=== PATIENT | female | born 1950 | race Caucasian/White ===

== ENCOUNTER 2022-09-07 02:06 | Inpatient (IN) | payer MEDICARE ==
[~2022-09-07] VITALS: Ht 152.4 cm; Wt 43.1 kg
[2022-09-07 02:15] VITALS: BP 142/61
[2022-09-07] MEDS ORDERED: LORAZEPAM 2 MG/1 ML VIAL IV PRN (04:15)
[2022-09-07] MEDS ORDERED: IV NORMAL SALINE 1000 ML BAG IV PRN (04:15)
[2022-09-07] MEDS ORDERED: CEFTRIAXONE 1 G in IV DEXTROSE 5% 50 ML IV PRN ×2 (04:15→05:00)
[2022-09-07] MEDS ORDERED: HALOPERIDOL LACTATE 5 MG/1 ML VIAL IV PRN ×2 (04:15→06:00)
[2022-09-07] MEDS ORDERED: CEFTRIAXONE 1 G in IV DEXTROSE 5% 50 ML IV SCH (05:27)
[2022-09-07] MEDS ORDERED: CEFTRIAXONE /D5W 50ML IVPB **ER PYXIS IV ONE (05:44)
[2022-09-07 07:24] LABS: HEMATOCRIT 38.2 % (31.2-41.9); MEAN CORPUSCULAR HEMOGLOBIN 26.8 uug (24.7-32.8); MEAN CORPUSCULAR VOLUME 82.6 fL (75.5-95.3); PLATELET COUNT (AUTO) 481 K/uL (179-408)
--- NOTE | 2022-09-07 07:30 | NUR ---
Awake, alert, oriented 2-3. IVF infusing. Tele [address]
[2022-09-07 07:54] LABS: CREATININE 0.9 mg/dL (0.6-1.3); PHOSPHOROUS 3.7 mg/dL (2.5-4.9); POTASSIUM 3.2 mmol/L (3.5-5.1)
[2022-09-07] MEDS ORDERED: HALOPERIDOL LACTATE 5 MG/1 ML VIAL IM PRN (08:00)
[2022-09-07] MEDS ORDERED: POTASSIUM CHLORIDE 20 MEQ TAB.PRT.SR PO ONE (09:30)
--- NOTE | 2022-09-07 10:00 | NUR ---
PT eval done, unsteady gait and impulsive noted, ambulated with FWW, max assist x 2. Fall precaution re enforced.
[2022-09-07 11:53] VITALS: BP 157/92
--- NOTE | 2022-09-07 15:30 | NUR ---
Caregiver/friend Gui visited at bedside, expressed concern.
[2022-09-07 15:51] VITALS: BP 147/82
--- NOTE | 2022-09-07 16:26 | NUR ---
saline lock out. Re inserted to RFA G 20. IVF restarted, infusing well.
--- NOTE | 2022-09-07 18:46 | NUR ---
Eating well. IVF infusing well to RFA. Room air, not in distress. Bed alarm on.
[2022-09-07] MEDS ORDERED: ACETAMINOPHEN 650 MG SUPP.RECT RC PRN (19:30)
[2022-09-07] MEDS ORDERED: MELATONIN 3 MG TABLET PO PRN (19:30)
[2022-09-07] MEDS ORDERED: ONDANSETRON 4 MG/2 ML VIAL IV PRN (19:30)
[2022-09-07 20:39] VITALS: BP 148/85
[2022-09-07] MEDS: ACETAMINOPHEN 325 MG TABLET PO PRN (21:14)
[2022-09-08 00:22] VITALS: BP 144/72
[2022-09-08 04:20] VITALS: BP 147/75
[2022-09-08] MEDS: CEFTRIAXONE 1 G in IV DEXTROSE 5% 50 ML IV SCH (05:06)
[2022-09-08] MEDS: IV NS 1000 ML 1,000 ML IV PRN (05:06)
[2022-09-08 06:59] LABS: HEMATOCRIT 39.4 % (31.2-41.9); MEAN CORPUSCULAR HEMOGLOBIN 26.4 uug (24.7-32.8); MEAN CORPUSCULAR VOLUME 82.5 fL (75.5-95.3); PLATELET COUNT (AUTO) 415 K/uL (179-408)
[2022-09-08 07:13] LABS: CREATININE 0.7 mg/dL (0.6-1.3); MAGNESIUM 1.8 mg/dL (1.8-2.4); PHOSPHOROUS 2.6 mg/dL (2.5-4.9); POTASSIUM 3.2 mmol/L (3.5-5.1)
[2022-09-08 07:26] LABS: THYROID STIMULATING HORMONE 0.658 mIU/mL (0.358-3.740)
[2022-09-08] MEDS ORDERED: TRAMADOL HCL 50 MG TABLET PO PRN (07:45)
[2022-09-08] MEDS ORDERED: POTASSIUM CHLORIDE 20 MEQ TAB.PRT.SR PO ONE (09:15)
--- NOTE | 2022-09-08 10:11 | NUR ---
SW consult requested to assess living situation. Patient is a 71-year-old white female admitted to the hospital for hypokalemia and UTI. Patient states that her primary contact is her good friend and caregiver, Gui Lopez ([phone]) that comes to see her for three hours a day. Patient states that she lives alone in an apartment at [address] [place] [address]. Per doctor's documentation, "patient appears to be a hoarder at her home and was found by neighbors down on the ground. Patient does appear to have some anxiety/depression issues but she definitely does have history of agoraphobia and anxiety." Patient states she has no medical equipment at home, she is not driving, and does not have home health services. CONCETTA made an APS report Intake ID [id number] for self-neglect and asked the patients nurse, Joshua to make a psychiatrist consultation order. Patient denies substance abuse and there is no toxicology report. Patient states she has a history of anxiety and does not have a therapist or psychiatrist. Patient denies suicidal or homicidal ideation. Patient states her plan for discharge is to go home to [address] [place] [address]. SW informed human services case manager, Cleve for possible SNF placement.
[2022-09-08] MEDS: METOPROLOL TARTRATE 25 MG TABLET PO SCH ×2 (10:26→21:49)
--- NOTE | 2022-09-08 10:32 | NUR ---
Noted PT. having elevated HR of 125. Reported to DR. Simon and received order for Metoprolol 25mg PO BID. Order was carried out and medication administered. Also, Dr. Simon requested for Psych consult and order was carried out and notified U to notify Dr. Bell that needs to see the patient. Will keep monitoring the patient.
--- NOTE | 2022-09-08 11:27 | NUR ---
Dr. Simon requested pt. to have physical therapy 2 times a day. Notified Greta.
[2022-09-08 11:39] VITALS: BP 152/85
[2022-09-08] MEDS: ENSURE ENLIVE (VAN) 240 ML LIQUID PO SCH ×2 (12:00→16:43)
--- NOTE | 2022-09-08 13:11 | NUR ---
WOUND CARE CONSULT: PT REFUSED SKIN ASSESSMENT. REVIEWED CHART, NURSING DOCUMENTATION AND PHOTOS WHICH INDICATE LEFT HIP AND SACRAL DEEP TISSUE INJURIES IN EVOLUTION. DISCUSSED SKIN PROTECTION AND WOUND CARE RECOMMENDATION WITH NURSING STAFF. MD IN AGREEMENT WITH PLAN OF CARE.
[2022-09-08] MEDS ORDERED: REMEDY ESSENTIAL ZINC PASTE 113 GM TOP PRN (13:15)
[2022-09-08 15:53] LABS: *BILIRUBIN,URIN NEGATIVE (NEGATIVE); *CLARITY,URINE CLEAR (CLEAR); *COLOR,URINE YELLOW (YELLOW); *KETONES,URINE TRACE (NEGATIVE); *UROBILINOGEN,URINE 0.2 E.U./dl (NORMAL); LEUKOCYTE ESTERASE ,URINE TRACE (NEGATIVE); NITRITE, URINE NEGATIVE (NEGATIVE); PH,URINE 7.5 (5.0-8.0); UGLUCOSE NEGATIVE (NEGATIVE)
[2022-09-08 15:57] VITALS: BP 149/80
[2022-09-08 15:58] LABS: *BLOOD, URINE TRACE (NEGATIVE)
[2022-09-08 15:59] LABS: BACTERIA,URINE FEW /HPF (NONE SEEN); SQUAMOUS EPITHELIAL CELL,UR FEW /HPF (NONE SEEN)
[2022-09-08] MEDS: FERROUS SULFATE 325 MG TABEC PO SCH ×2 (16:22→21:48)
--- NOTE | 2022-09-08 18:35 | NUR ---
Pt. noted to be stable during the shift. Compliance with the care given. Skin treatment done. All needs attended and met. No c/o pain. Call light within reach. All safety measure applied. Will keep monitoring the patient.
[2022-09-08 20:00] VITALS: BP 152/82
[2022-09-08] MEDS: REMEDY ESSENTIAL ZINC PASTE 113 GM TOP SCH (21:49)
[2022-09-08] MEDS: ACETAMINOPHEN 325 MG TABLET PO PRN (21:50)
[2022-09-09] VITALS: BP 154/86
[2022-09-09] MEDS: TRAMADOL HCL 50 MG TABLET PO PRN ×2 (04:51→21:36)
[2022-09-09] MEDS: CEFTRIAXONE 1 G in IV DEXTROSE 5% 50 ML IV SCH (06:04)
[2022-09-09 07:03] LABS: HEMATOCRIT 36.5 % (31.2-41.9); MEAN CORPUSCULAR HEMOGLOBIN 26.6 uug (24.7-32.8); MEAN CORPUSCULAR VOLUME 82.7 fL (75.5-95.3); PLATELET COUNT (AUTO) 367 K/uL (179-408)
[2022-09-09 07:20] LABS: CREATININE 0.6 mg/dL (0.6-1.3); MAGNESIUM 1.7 mg/dL (1.8-2.4); PHOSPHOROUS 2.4 mg/dL (2.5-4.9); POTASSIUM 3.6 mmol/L (3.5-5.1)
[2022-09-09] MEDS: IV NS 1000 ML 1,000 ML IV PRN (07:22)
[2022-09-09 08:00] VITALS: BP 135/75
[2022-09-09] MEDS: METOPROLOL TARTRATE 25 MG TABLET PO SCH ×2 (09:07→20:31)
[2022-09-09] MEDS: FERROUS SULFATE 325 MG TABEC PO SCH ×2 (09:07→20:19)
[2022-09-09] MEDS: REMEDY ESSENTIAL ZINC PASTE 113 GM TOP SCH ×2 (09:08→20:20)
[2022-09-09] MEDS: ENSURE ENLIVE (VAN) 240 ML LIQUID PO SCH ×2 (09:08→16:38)
[2022-09-09] MEDS: MAGNESIUM SULFATE/D5W 100 ML IV SCH ×2 (11:07→12:32)
[2022-09-09] MEDS: MAGNESIUM HYDROXIDE 30 ML LIQUID UDC PO PRN ×2 (11:37→20:19)
[2022-09-09 11:52] VITALS: BP 117/59
[2022-09-09] MEDS: SOD FERRIC GLUC COMPLX/SUCROSE 125 MG in IV NORMAL SALINE 100 ML IV SCH (14:25)
[2022-09-09] MEDS ORDERED: NEUTRA PHOS PACKET PO ONE (16:30)
[2022-09-09 16:53] VITALS: BP 120/67
--- NOTE | 2022-09-09 18:42 | NUR ---
SHIFT NOTE; PT AOX3-4; DENIES ANY PAIN OR SOB. TOLERATED PT WELL. CONSTIPATED. MOM WAS GIVEN. MANUAL DISIMPACTION DONE. PSYCH CONSULT DONE NO NEW ORDER. SINUS ON TELE. CALL LIGHT WITH IN REACH. BED LOCKED. WILL ENDORSED TO NOC SHIFT.
[2022-09-09 20:00] VITALS: BP 125/72
[2022-09-09] MEDS ORDERED: POTASSIUM PHOSPHATE MM 15 MMOL in IV NORMAL SALINE 250 ML IV ONE (20:00)
[2022-09-10] VITALS: BP 148/84
[2022-09-10 04:00] VITALS: BP 147/78
[2022-09-10] MEDS: IV NS 1000 ML 1,000 ML IV PRN ×2 (06:04→23:42)
[2022-09-10] MEDS: CEFTRIAXONE 1 G in IV DEXTROSE 5% 50 ML IV SCH (06:05)
[2022-09-10 06:57] LABS: HEMATOCRIT 35.1 % (31.2-41.9); MEAN CORPUSCULAR HEMOGLOBIN 26.8 uug (24.7-32.8); MEAN CORPUSCULAR VOLUME 82.7 fL (75.5-95.3); PLATELET COUNT (AUTO) 331 K/uL (179-408)
[2022-09-10 07:14] LABS: CREATININE 0.6 mg/dL (0.6-1.3); MAGNESIUM 2.1 mg/dL (1.8-2.4); PHOSPHOROUS 2.6 mg/dL (2.5-4.9); POTASSIUM 4.3 mmol/L (3.5-5.1)
[2022-09-10] MEDS: REMEDY ESSENTIAL ZINC PASTE 113 GM TOP SCH ×2 (08:33→20:35)
[2022-09-10] MEDS: METOPROLOL TARTRATE 25 MG TABLET PO SCH ×2 (08:33→20:51)
[2022-09-10] MEDS: FERROUS SULFATE 325 MG TABEC PO SCH ×2 (08:33→20:51)
[2022-09-10] MEDS: ENSURE ENLIVE (VAN) 240 ML LIQUID PO SCH ×2 (08:34→16:20)
--- NOTE | 2022-09-10 09:00 | NUR ---
Pt. refused the wound treatment on left hip and sacral area despite the nurse explained the risk of refusing the treatment. Addendum: 09/10/22 at 1000 by SUE WILLETT RN Amended: Links added.
[2022-09-10] MEDS: TRAMADOL HCL 50 MG TABLET PO PRN ×2 (10:45→22:42)
[2022-09-10 12:00] VITALS: BP 113/63
[2022-09-10] MEDS: SOD FERRIC GLUC COMPLX/SUCROSE 125 MG in IV NORMAL SALINE 100 ML IV SCH (14:06)
[2022-09-10 15:56] VITALS: BP 106/65
--- NOTE | 2022-09-10 17:02 | NUR ---
Pt. noted to be stable during the shift. Able to ambulate with assist. No acute distress noted. call light within reach. No c/o pain. Able to make need known. All safety measure applied. No change in condition noted. Will keep monitoring the patient.
[2022-09-10 20:40] VITALS: BP 129/68
[2022-09-10] MEDS: ACETAMINOPHEN 325 MG TABLET PO PRN (20:54)
[2022-09-11 04:10] VITALS: BP 172/96
[2022-09-11] MEDS: CEFTRIAXONE 1 G in IV DEXTROSE 5% 50 ML IV SCH (05:18)
--- NOTE | 2022-09-11 05:34 | NUR ---
PATIENT AWAKE IN BED. BP ELEVATED 179/88. ALL OTHER VSS. CALLED OUT TO DR. WASSERMAN FOR FURTHER ORDERS. ALL NEEDS ATTENDED. WILL CONTINUE TO MONITOR AND ASSESS.
[2022-09-11] MEDS: METOPROLOL TARTRATE 25 MG TABLET PO SCH ×2 (07:08→20:18)
--- NOTE | 2022-09-11 07:09 | NUR ---
PATIENT AWAKE IN BED. BP RECHECKED 180/83. ALL OTHER VSS. PATIENT GIVEN ROUTINE LOPRESSOR 25MG.
[2022-09-11] MEDS: FERROUS SULFATE 325 MG TABEC PO SCH ×2 (08:20→20:18)
[2022-09-11] MEDS: ENSURE ENLIVE (VAN) 240 ML LIQUID PO SCH ×2 (08:21→16:10)
--- NOTE | 2022-09-11 08:59 | NUR ---
According to material handler 1st shift nurse cause the patient had high blood pressure in the morning medication (Metoprolol 25mg) for 0900 was administered by material handler 1st shift nurse a bit early and BP for 0900am was 124/59. Noted pt. to be stable. Will keep monitoring the patient.
[2022-09-11] MEDS: REMEDY ESSENTIAL ZINC PASTE 113 GM TOP SCH ×2 (09:10→20:18)
[2022-09-11] MEDS: TRAMADOL HCL 50 MG TABLET PO PRN ×2 (11:18→23:57)
[2022-09-11 11:45] VITALS: BP 137/82
[2022-09-11] MEDS: SOD FERRIC GLUC COMPLX/SUCROSE 125 MG in IV NORMAL SALINE 100 ML IV SCH (14:39)
--- NOTE | 2022-09-11 16:25 | NUR ---
PT. noted to be stable during the shift. Pt. requested to have Tramadol 100mg every 6 hours, notified Dr. Simon and waiting for the respond. All needs attended and met. Compliance with the care given. All safety measure applied. Call light within reach. wound treatment moses. No c/o dizziness and headache and nausea/vomiting. Will keep monitoring the patient.
[2022-09-11 16:41] VITALS: BP 139/77
[2022-09-11 20:33] VITALS: BP 114/68
[2022-09-11] MEDS ORDERED: LORAZEPAM 1 MG TABLET PO PRN (22:00)
[2022-09-12 04:51] VITALS: BP 144/83
[2022-09-12 07:30] LABS: CREATININE 0.7 mg/dL (0.6-1.3); HEMATOCRIT 32.6 % (31.2-41.9); PHOSPHOROUS 3.3 mg/dL (2.5-4.9); PLATELET COUNT (AUTO) 301 K/uL (179-408); POTASSIUM 4.2 mmol/L (3.5-5.1)
[2022-09-12 08:53] VITALS: BP 125/73
[2022-09-12] MEDS: FERROUS SULFATE 325 MG TABEC PO SCH (08:53)
[2022-09-12] MEDS: REMEDY ESSENTIAL ZINC PASTE 113 GM TOP SCH (08:53)
[2022-09-12] MEDS: METOPROLOL TARTRATE 25 MG TABLET PO SCH (08:53)
[2022-09-12] MEDS: ENSURE ENLIVE (VAN) 240 ML LIQUID PO SCH (08:56)
[2022-09-12] MEDS ORDERED: CIPROFLOXACIN HCL 250 MG TABLET PO SCH (09:00)
[2022-09-12] MEDS ORDERED: LORAZEPAM 1 MG TABLET PO PRN (09:14)
[2022-09-12] MEDS: TRAMADOL HCL 50 MG TABLET PO PRN (11:27)
[2022-09-12 12:00] VITALS: BP 133/73
[2022-09-12] MEDS ORDERED: MENT113O TOP ×2 (12:06)
[2022-09-12] MEDS ORDERED: METO25TA6 PO (12:06)
[2022-09-12] MEDS ORDERED: LORA-259 PO (12:06)
[2022-09-12] MEDS ORDERED: Lactose-Free Food PO (12:06)
[2022-09-12] MEDS ORDERED: ACET650S13 RC (12:06)
[2022-09-12] MEDS ORDERED: TRAM50TA2 PO (12:06)
[2022-09-12] MEDS ORDERED: MELA3TAB41 PO (12:06)
[2022-09-12] MEDS ORDERED: ONDA4VIA23 PO (12:06)
[2022-09-12] MEDS ORDERED: CIPR250T4 PO (12:06)
[2022-09-12] MEDS ORDERED: FERR325T28 PO (12:06)
[2022-09-12] MEDS ORDERED: MAGN400O6 PO (12:06)
--- NOTE | 2022-09-12 12:40 | NUR ---
RECEIVED REPORT FROM ZACH CARRANZA, NOC SHIFT. PATIENT IS ALERT & ORIENTATED X4, AND SPEAKS HUNGARIAN. VITAL SIGNS STABLE. PATIENT HAD ONE EPISODE OF ANXIETY AND REQUESTED ATIVAN. RN GAVE ATIVAN ORDERED. PATIENT EXPRESS FEELING BETTER. PATIENT HAD REPORTED PAIN. RN GAVE PAIN MEDICATION INDICATED. PATIENT EXPRESSED RELIEF OF PAIN. WOUND DRESSING COMPLETED. DISCHARGE WOUND PHOTOS TAKEN. PATIENT HAS NO IV CATHETER. NO ACUTE DISTRESS NOTED. PATIENT SET TO BE DISCHARGE TODAY. PATIENT BELONGING SIGNED. PATIENT EDUCATION PROVIDED. ALL QUESTIONS ANSWER. PATIENT VERBALIZED UNDERSTANDING. DISCHARGE DOCUMENTATION SIGNED. RN PROVIDED REPORT TO ELZBIETA GARY, AT 1210AM. ALL QUESTIONS ANSWERED. RN GAVE REPORT TO EMT FROM [facility]. ALL QUESTIONS ANSWERED. PATIENT DISCHARGED TO [facility] TEAM AND LEFT UNIT IN STABLE CONDITION AT 1240PM.
== END 2022-09-12 12:40 | DRG 689 ==
LOC: TELE3 02:06 → MEDSURG3 09-10 07:55
PROVIDERS: ADMIT Internal Medicine; ATTEND Internal Medicine
DX: N39.0 Urinary tract infection, site not specified (principal); E43 Unspecified severe protein-calorie malnutrition; G93.41 Metabolic encephalopathy; Z68.1 Body mass index [BMI] 19.9 or less, adult; E87.6 Hypokalemia; I10 Essential (primary) hypertension; D50.9 Iron deficiency anemia, unspecified; L89.226 Pressure-induced deep tissue damage of left hip; F41.9 Anxiety disorder, unspecified; F40.01 Agoraphobia with panic disorder; F42.3 Hoarding disorder; L89.152 Pressure ulcer of sacral region, stage 2; T14.8XXA Other injury of unspecified body region, initial encounter; X58.XXXA Exposure to other specified factors, initial encounter; Y93.89 Activity, other specified; Y92.89 Other specified places as the place of occurrence of the external cause; L89.529 Pressure ulcer of left ankle, unspecified stage; Z20.822 Contact with and (suspected) exposure to COVID-19
CPT/HCPCS: 36415; 83550; 83735; 84100; 84443; 85025; 87040; 97535-GO-CO; A4663; A6209; A6213; G0378; J0696; J1630; J2060; J2916; J3475; J3490; J7040